=== PATIENT | female | born 1975 | race Caucasian/White ===

== ENCOUNTER 2017-02-15 12:32 | Emergency (ER) | payer OTHER ==
[2017-02-15 12:42] VITALS: BP 109/79
[2017-02-15 12:43] LABS: BILIRUBIN,URINE NEGATIVE (NEGATIVE); PH,URINE 7.5 PH (5.0-7.5)
[2017-02-15 12:44] LABS: UA w/ MICROSCOPIC CHARGE YES
--- NOTE | 2017-02-15 12:44 | ED Physician Documentation ---
PD HPI FEMALE - Stated complaint Stated Complaint: FEMALE - History obtained from History obtained from: Patient - History of Present Illness Timing - onset: How many weeks ago (1) Timing - details: Gradual onset, Still present (worse the past day), Waxing and waning Associated symptoms: Dysuria, Urinary frequency. No: Fever, Vaginal discharge, Genital sore/lesion, Hematuria Similar symptoms before: Diagnosis (UTIs often since having children) Review of Systems Constitutional: denies: Fever, Chills GI: denies: Nausea, Vomiting, Diarrhea : reports: Dysuria, Frequency. 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 ) : Frequency - Present Medications Home Medications: Ambulatory Orders Medication Instructions Recorded Confirmed Ibuprofen 600 mg PO BID 02/15/17 02/15/17 Novamine Otc 02/15/17 Phenazopyridine [Pyridium] 200 mg PO TID PRN #15 tablet 02/15/17 Sulfamethox/Trimeth 800/160 1 each PO BID #14 tablet 02/15/17 [Bactrim Ds 800/160] - Allergies Allergies/Adverse Reactions: Allergies Allergy/AdvReac Type Severity Reaction Status Date / Time No Known Drug Allergies Allergy Verified 02/15/17 12:42 PD ED PE NORMAL - Vitals Vital signs reviewed: Yes - General General: Alert and oriented X 3, No acute distress, Well developed/nourished - Abdomen Abdomen: Soft, Non tender - Female Female : Deferred - Back Back: No CVA TTP Results - Vitals Vitals: Vital Signs - 24 hr 02/15/17 12:38 Temperature 36.4 C L Heart Rate 84 Respiratory 18 Rate Blood Pressure 109/79 O2 Saturation 99 Oxygen O2 Source Room air - Labs Labs: Laboratory Tests 02/15/17 12:37 Urine Color YELLOW Urine Clarity CLOUDY Urine pH 7.5 Ur Specific [place] 1.015 Urine Protein TRACE Urine Glucose (UA) NEGATIVE Urine Ketones NEGATIVE Urine Occult Blood MODERATE H Urine Nitrite NEGATIVE Urine Bilirubin NEGATIVE Urine Urobilinogen 0.2 (NORMAL) Ur Leukocyte Esterase SMALL H Urine RBC 11-25 H Urine WBC >25 H Ur Squamous Epith Cells FEW Squamous Urine Bacteria Moderate H Ur Microscopic Review INDICATED Urine Culture Comments INDICATED PD MEDICAL DECISION MAKING - ED course Complexity details: reviewed results, considered differential, d/w patient Departure - Departure Disposition: 01 Home, Self Care Clinical Impression: Urinary tract infection Qualifiers: Urinary tract infection type: acute cystitis Hematuria presence: without hematuria Qualified Code(s): N30.00 - Acute cystitis without hematuria Condition: Stable Record reviewed to determine appropriate education?: Yes Instructions: ED UTI Cystitis Female Prescriptions: Sulfamethox/Trimeth 800/160 [Bactrim Ds 800/160] 1 each PO BID #14 tablet Phenazopyridine [Pyridium] 200 mg PO TID PRN #15 tablet PRN Reason: Pain Comments: Drink lots of fluids. Paracetamol if needed for pains. Phenazopyridine will help with the discomfort of urination and may turn urine orange colored so not to worry. Bactrim antibiotic twice daily for a week for the infection. Recheck if not better over the next 2-3 days. Return sooner if worsening symptoms.
[2017-02-15 12:51] LABS: UR CULTURE IF IND INDICATED; WBC,URINE >25 /HPF (0-5)
[2017-02-15] MEDS ORDERED: SULFAMETH/TRIMETH DS 800/160 MG TABLET PO STA (13:01)
[2017-02-15] MEDS ORDERED: PHENAZOPYRIDINE 100 MG TABLET PO STA (13:01)
[2017-02-15] MEDS ORDERED: ACETAMINOPHEN 325 MG TABLET PO STA (13:01)
[2017-02-15] MEDS ORDERED: PHENAZOPYRIDINE 100 MG TABLET PO ONE (13:10)
[2017-02-15] MEDS ORDERED: ACETAMINOPHEN 325 MG TABLET PO ONE (13:10)
[2017-02-15] MEDS ORDERED: SULFAMETH/TRIMETH DS 800/160 MG TABLET PO ONE (13:10)
== END 2017-02-15 13:20 | disposition home or self-care (01) ==
LOC: ED 12:32
DX: N30.00 Acute cystitis without hematuria (principal)
CPT/HCPCS: 81001; 87077; 87086; 87181; 99282; 99283; A9270; 81003